=== PATIENT | male | born 1945 | race Caucasian/White ===

== ENCOUNTER → 2021-04-08 09:56 | Outpatient (BNVA) | payer MEDICARE, OTHER, SELFPAY | PROVIDERS: PCP Internal Medicine; Visit Provider Psychiatry & Neurology Neurology | DX: G20 Parkinson's disease (principal); K59.00 Constipation, unspecified; R20.0 Anesthesia of skin | CPT/HCPCS: 99212 ==

== ENCOUNTER 2021-04-15 08:48 | Outpatient (REF) | payer MEDICARE, OTHER, SELFPAY ==
--- NOTE | 2021-04-15 08:55 | EMG_ITS ---
This is a 75-year-old man who first developed some numbness in the toes 2 years ago that has gotten slowly worse. He now has numbness in his feet. PHYSICAL EXAMINATION: On examination, he is alert, oriented with normal intellectual functions. Cranial nerves II through XII are normal. Muscle tone and strength are normal in all 4 extremities. He has slight atrophy of the EDB muscle bilaterally. Decreased ankle reflexes. IMPRESSION: Peripheral neuropathy. 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 Normal EMG of the right L4-S1 innervated muscles. MD MANDO Caban/JESUS ALBERTO / [id number]
== END 2021-04-15 08:49 | disposition home or self-care (01) ==
LOC: HO.NEURO 08:48
PROVIDERS: PCP Internal Medicine; Visit Provider Psychiatry & Neurology Neurology
DX: R20.0 Anesthesia of skin (principal)
CPT/HCPCS: 95885; 95911

== ENCOUNTER → 2021-05-18 09:31 | Outpatient (BNVA) | payer MEDICARE, OTHER, SELFPAY | PROVIDERS: PCP Internal Medicine; Visit Provider Psychiatry & Neurology Neurology | DX: G20 Parkinson's disease (principal); K59.00 Constipation, unspecified; G62.89 Other specified polyneuropathies | CPT/HCPCS: 99212 ==

== ENCOUNTER → 2021-08-12 09:17 | Outpatient (BNVA) | payer MEDICARE, OTHER, SELFPAY | PROVIDERS: PCP Internal Medicine; Visit Provider Psychiatry & Neurology Neurology | DX: G20 Parkinson's disease (principal); G62.89 Other specified polyneuropathies; K59.00 Constipation, unspecified | CPT/HCPCS: 99212 ==

== ENCOUNTER → 2021-10-29 07:50 | Outpatient (BNVA) | payer MEDICARE, OTHER, SELFPAY | PROVIDERS: PCP Internal Medicine; Visit Provider Psychiatry & Neurology Neurology | DX: G62.89 Other specified polyneuropathies (principal); G20 Parkinson's disease; K59.00 Constipation, unspecified; G62.9 Polyneuropathy, unspecified | CPT/HCPCS: 99212 ==

== ENCOUNTER → 2022-01-25 09:25 | Outpatient (BNVA) | payer MEDICARE, OTHER, SELFPAY | PROVIDERS: PCP Internal Medicine; Visit Provider Psychiatry & Neurology Neurology | DX: G20 Parkinson's disease (principal); G62.89 Other specified polyneuropathies; K59.00 Constipation, unspecified | CPT/HCPCS: 99212 ==

== ENCOUNTER → 2022-08-26 07:24 | Outpatient (BNVA) | payer MEDICARE, OTHER, SELFPAY | PROVIDERS: PCP Internal Medicine; Visit Provider Psychiatry & Neurology Neurology | DX: G20 Parkinson's disease (principal); G62.89 Other specified polyneuropathies; K59.00 Constipation, unspecified | CPT/HCPCS: 99212 ==

== ENCOUNTER 2023-02-28 07:19 | Outpatient (AMB) | payer MEDICARE, OTHER, SELFPAY ==
--- NOTE | 2023-02-28 07:39 | A.OFFVIS_ITS ---
Intake Vital Signs 02/28/23 07:41 Height 6 ft 1 in Weight 160 lb BMI 21.1 BP 130/78 Blood Pressure Location Rt brachial Position Sitting Pulse 90 Pulse Source Pulse Oximeter Pulse Oximetry (%) 8 L Intake Visit Reasons: 6 MO FU-NUMBNESS - LVM Intake Note: Patient presents for 6 month follow up. Allergies No Known Allergies Allergy (Verified 02/28/23 07:41) Medication List - Last Reconciled 02/28/23 by Delaney Nice MD acetaminophen (Tylenol) 325 mg PO QID PRN Al hyd-Mg tr-alg ac-sod bicarb 80-14.2 mg (Gaviscon) tabs PO amantadine HCl 100 mg PO BID bisacodyl (Laxative (bisacodyl)) 10 mg PA DAILY PRN carbidopa-levodopa 25-100 mg 1 tab PO BID carboxymethylcellulose sodium 0.5% (Refresh Tears) 1 drp ophthalmic (eye) BID fluocinonide 0.05% mL topical hydrocortisone 1% (Cortizone-10) 1 appl topical BID PRN polyethylene glycol 3350 (Miralax) 17 grams PO DAILY sodium chloride-aloe vera (Saline Nasal (aloe vera) gel) 1 appl topical BEDTIME PRN vitamin C73-pxtbr acid 0.5-1 mg 1 tab PO DAILY HPI HPI Comments History of Present Illness Details ?77 y/o male patient comes for follow up visit.He stopped carbidopa/levodopa and is on amantadine 100mg bid. he had swelling of his feet and he thinks its related to amantadine. His PCP gave him furosemide which helped. He feels amantadine does not help.He reports tightness in his chest. He stopped azilect .He felt it did not help and it cost him 300$. Not much tremors in his hands but has bradykinesia and stiffness. He is concerned about his feet- c/o numbness and tingling in his toes . He denies back pain. He denies dizziness. he says he has tongue twitches .No falls since last visit.He has a walker but does not use it often . He still has stiffness, mild slowness in swallowing , tremors etc . He denies hallucinations or gi issues. he has chronic constipation and takes miralax . he denies double vision or vertigo He drinks 20 oz a day of water and 2 cups of coffee. ???His EMG /NCS was c/w sensory axonal neuropathy.His labs were normal Vit B 12 , TSH BEN ESR etc ???Pt denies any side effect of medication. Denies GI upset, hallucination.. PFSH Medical History Parkinson disease Hyperlipidemia Fibromyalgia Depression Blepharitis Gastritis Surgical History H/O prostatectomy Family History Mother Dementia Father Non-Hodgkin lymphoma Social History Alcohol intake: current Alcohol intake frequency: holidays/special occasions only Patient Tobacco Use Status: Former Tobacco user Quit Date: Physical Exam Vital Signs: Last Vital Signs Pulse 90 02/28/23 07:41 BP 130/78 02/28/23 07:41 Pulse Ox 8 L 02/28/23 07:41 BMI result Body Mass Index 21.1 Const Orientation/consciousness: patient oriented x3 Neuro Other: No postural,mild action tremors difficulty opening his mouth tongue tremors- very mild No rest tremors FFM and foot taps were decreased kota L>R Mild Decreased facial expression and blink Decreased tongue movements Voice- hypophonia and dysprosody - better than last visit Gait- stooped, good speed and good stride, decreased arm swings L>R General: patient oriented x3 Assessment & Plan Assessment & Plan (1) 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 Miralax for constipation Medications: New carbidopa-levodopa 25-100 mg 1 tab PO BID 60 tabs 6RF Discontinued lactulose Discontinued Reason: Patient no longer taking 10 grams (15 mL) PO BEDTIME 946 mL 3RF carbidopa-levodopa 25-100 mg Discontinued Reason: No Longer Medically Relevant 1 tab PO BID 60 tabs 6RF Coding Level of Care Code Est Pt Level 4 (68668) Diagnoses Parkinson disease G20 Constipation K59.00 Neuropathy, peripheral axonal G62.89
[2023-02-28 07:41] VITALS: BP 130/78; PULSE 90; O2SAT 8; BMI 21.1
== END 2023-02-28 08:09 | disposition home or self-care (01) ==
PROVIDERS: PCP Internal Medicine; Visit Provider Psychiatry & Neurology Neurology
DX: G20.A1 Parkinson's disease without dyskinesia, without mention of fluctuations (principal); K59.00 Constipation, unspecified; G62.89 Other specified polyneuropathies
CPT/HCPCS: 99214

== ENCOUNTER → 2023-02-28 07:19 | Outpatient (BNVA) | payer MEDICARE, OTHER, SELFPAY | PROVIDERS: PCP Internal Medicine; Visit Provider Psychiatry & Neurology Neurology | DX: G20.A1 Parkinson's disease without dyskinesia, without mention of fluctuations (principal); K59.00 Constipation, unspecified; G62.89 Other specified polyneuropathies | CPT/HCPCS: 99212 ==

== ENCOUNTER 2023-07-20 13:51 | Outpatient (AMB) | payer MEDICARE, OTHER, SELFPAY ==
--- NOTE | 2023-07-20 13:58 | A.OFFVIS_ITS ---
Vital Signs 07/20/23 13:59 Height 6 ft 1 in Weight 158 lb 2 oz BMI 20.9 BP 110/64 Blood Pressure Location Rt brachial Position Sitting Respiration 16 Pulse 103 H Pulse Source Pulse Oximeter Pulse Oximetry (%) 97 Oxygen Delivery Method Room Air Intake Visit Reasons: 4 mo f/u - Numbness-CONF Intake Note: Pt presents for a 4 month follow up for Parkinson's. 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 Allergies No Known Allergies Allergy (Verified 07/20/23 13:59) Medication List - Last Reconciled 07/20/23 by Delaney Nice MD acetaminophen (Tylenol) 325 mg PO QID PRN Al hyd-Mg tr-alg ac-sod bicarb 80-14.2 mg (Gaviscon) tabs PO amantadine HCl 100 mg PO BID bisacodyl (Laxative (bisacodyl)) 10 mg SC DAILY PRN carbidopa-levodopa 25-100 mg (Sinemet) 1 tab PO TID carboxymethylcellulose sodium 0.5% (Refresh Tears) 1 drp ophthalmic (eye) BID fluocinonide 0.05% mL topical hydrocortisone 1% (Cortizone-10) 1 appl topical BID PRN polyethylene glycol 3350 (Miralax) 17 grams PO DAILY sodium chloride-aloe vera (Saline Nasal (aloe vera) gel) 1 appl topical BEDTIME PRN vitamin H98-bfxpn acid 0.5-1 mg 1 tab PO DAILY HPI Comments Details: ?77 y/o male patient comes for follow up visit.He is on sinemet 25/100 bid amantadine 100mg bid. Not much tremors in his hands but has bradykinesia and stiffness. He is yousuf rned about his feet- c/o numbness and tingling in his toes . He denies back pain. He denies dizziness. he says he has tongue twitches .No falls since last visit.He has a walker but does not use it often . He still has stiffness, mild slowness in swallowing , tremors etc . He denies hallucinations or gi issues. he has chronic constipation and takes miralax . he denies double vision or vertigo He drinks 20 oz a day of water and 2 cups of coffee. ???His EMG /NCS was c/w sensory axonal neuropathy.His labs were normal Vit B 12 , TSH BEN ESR etc ???Pt denies any side effect of medication. Denies GI upset, hallucination.. PFSH Medical History Multiple system atrophy with predominant parkinsonism Parkinson disease Hyperlipidemia Fibromyalgia Depression Blepharitis Gastritis Surgical History H/O prostatectomy Family History Mother Dementia Father Non-Hodgkin lymphoma Social History Alcohol intake: current Alcohol intake frequency: holidays/special occasions only Patient Tobacco Use Status: Former Tobacco user Quit Date: Physical Exam Vital Signs: Last Vital Signs Pulse 103 H 07/20/23 13:59 Resp 16 07/20/23 13:59 BP 110/64 07/20/23 13:59 Pulse Ox 97 07/20/23 13:59 Oxygen Delivery Method Room Air 07/20/23 13:59 BMI result Body Mass Index 20.9 Const Orientation/consciousness: patient oriented x3 Neuro Other: No postural,mild action tremors difficulty opening his mouth tongue tremors- very mild No rest tremors FFM and foot taps were decreased kota L>R Mild Decreased facial expression and blink Decreased tongue movements Voice- hypophonia and dysprosody - better than last visit Gait- stooped, good speed and good stride, decreased arm swings L>R General: patient oriented x3 Assessment & Plan Assessment & Plan (1) Multiple system atrophy with predominant parkinsonism: Code(s): G23.2 - Striatonigral degeneration Category: Medical (2) Constipation: Comment: severe -stopped miralax Code(s): K59.00 - Constipation, unspecified Category: Medical (3) Neuropathy, peripheral axonal: Code(s): G62.89 - Other specified polyneuropathies Category: Medical Plan F/u with GI sinemet 25/100 tid amanatdine 100mg bid Increase fluid intake to 6 glasses of water or juice continue exercises. Miralax for constipation Medications: Changed From carbidopa-levodopa 25-100 mg (Sinemet) 1 tab PO BID 60 tabs 6RF To carbidopa-levodopa 25-100 mg (Sinemet) 1 tab PO TID 90 tabs 6RF Coding Level of Care Code Est Pt Level 4 (64686) Diagnoses Multiple system atrophy with predominant parkinsonism G23.2 Constipation K59.00 Neuropathy, peripheral axonal G62.89
[2023-07-20 13:59] VITALS: BP 110/64; PULSE 103; RESP 16; O2SAT 97; BMI 20.9
== END 2023-07-20 14:27 | disposition home or self-care (01) ==
PROVIDERS: PCP Internal Medicine; Visit Provider Psychiatry & Neurology Neurology
DX: G23.2 Striatonigral degeneration (principal); K59.00 Constipation, unspecified; G62.89 Other specified polyneuropathies
CPT/HCPCS: 99214

== ENCOUNTER → 2023-07-20 13:51 | Outpatient (BNVA) | payer OTHER, MEDICARE, SELFPAY | PROVIDERS: PCP Internal Medicine; Visit Provider Psychiatry & Neurology Neurology ==

== ENCOUNTER 2023-11-11 14:44 | Outpatient (AMB) | payer MEDICARE, OTHER, SELFPAY ==
--- NOTE | 2023-11-11 14:55 | MHC.OFFVIS ---
Vital Signs 11/11/23 14:56 Height 6 ft 1 in Weight 160 lb BMI 21.1 BP 138/82 Blood Pressure Location Rt brachial Position Sitting Respiration 16 Pulse 101 H Pulse Source Pulse Oximeter Pulse Oximetry (%) 98 Oxygen Delivery Method Room Air Intake Visit Reasons: Follow Up- APPROVED- Confirmed Intake Note: Pt presents to the office for 3 month follow up for Parkinson's. 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: No Allergies No Known Allergies Allergy (Verified 11/11/23 14:56) Medication List - Last Reconciled 11/11/23 by Delaney Nice MD acetaminophen (Tylenol) 325 mg PO QID PRN Al hyd-Mg tr-alg ac-sod bicarb 80-14.2 mg (Gaviscon) tabs PO bisacodyl (Laxative (bisacodyl)) 10 mg MS DAILY PRN carbidopa-levodopa 23.75-95 mg ER (Rytary) 2 caps PO TID carbidopa-levodopa 25-100 mg (Sinemet) 1 tab PO TID carboxymethylcellulose sodium 0.5% (Refresh Tears) 1 drp ophthalmic (eye) BID fluocinonide 0.05% mL topical hydrocortisone 1% (Cortizone-10) 1 appl topical BID PRN pantoprazole 40 mg PO DAILY polyethylene glycol 3350 (Miralax) 17 grams PO DAILY sodium chloride-aloe vera (Saline Nasal (aloe vera) gel) 1 appl topical BEDTIME PRN vitamin L36-qrnro acid 0.5-1 mg 1 tab PO DAILY HPI Comments Details: ?77 y/o male patient comes for follow up visit.He is on sinemet 25/100 tid but stopped amantadine 100mg bid. he could not tolerate amantadine . 2 hrs after sinemet dose he has mouth twitching Not much tremors in his hands but has bradykinesia and stiffness. He is concerned about his feet- c/o numbness and tingling in his toes . He denies back pain. He denies dizziness. he says he has tongue twitches .No falls since last visit.He has a walker but does not use it often . He still has stiffness, mild slowness in swallowing , tremors etc . He denies hallucinations or GI issues. he has chronic constipation and takes miralax . he denies double vision or vertigo He drinks 20 oz a day of water and 2 cups of coffee. ???His EMG /NCS was c/w sensory axonal neuropathy.His labs were normal Vit B 12 , TSH BEN ESR etc ???Pt denies any side effect of medication. Denies GI upset, hallucination.. PFSH Medical History Multiple system atrophy with predominant parkinsonism Parkinson disease Hyperlipidemia Fibromyalgia Depression Blepharitis Gastritis Surgical History H/O prostatectomy Family History Mother Dementia Father Non-Hodgkin lymphoma Social History Alcohol intake: current Alcohol intake frequency: holidays/special occasions only Patient Tobacco Use Status: Former Tobacco user Physical Exam Vital Signs: Last Vital Signs Pulse 101 H 11/11/23 14:56 Resp 16 11/11/23 14:56 BP 138/82 11/11/23 14:56 Pulse Ox 98 11/11/23 14:56 Oxygen Delivery Method Room Air 11/11/23 14:56 BMI result Body Mass Index 21.1 Const Orientation/consciousness: patient oriented x3 Neuro Other: No postural,mild action tremors difficulty opening his mouth tongue tremors- very mild No rest tremors FFM and foot taps were decreased kota L>R Mild Decreased facial expression and blink Decreased tongue movements Voice- hypophonia and dysprosody - better than last visit Gait- stooped, good speed and good stride, decreased arm swings L>R General: patient oriented x3 Assessment & Plan Assessment & Plan (1) Multiple system atrophy with predominant parkinsonism: Code(s): G23.2 - Striatonigral degeneration Category: Medical (2) Constipation: Code(s): K59.00 - Constipation, unspecified Category: Medical (3) Neuropathy, peripheral axonal: Code(s): G62.89 - Other specified polyneuropathies Category: Medical Plan F/u with GI will trial rytary / 2 caps tid d/c sinemet Increase fluid intake to 6 glasses of water or juice continue exercises. He is starting speech therapy and swallowing eval Miralax for constipation Medications: New carbidopa-levodopa -95 mg ER (Rytary) divide evenly over waking hours 2 caps PO TID 180 caps 6RF Coding Level of Care Code Est Pt Level 4 (82131) Complex EM visit Add On G2211 Diagnoses Multiple system atrophy with predominant parkinsonism G23.2 Constipation K59.00 Neuropathy, peripheral axonal G62.89
[2023-11-11 14:56] VITALS: BP 138/82; PULSE 101; RESP 16; O2SAT 98; BMI 21.1
== END 2023-11-11 15:32 | disposition home or self-care (01) ==
PROVIDERS: PCP Internal Medicine; Visit Provider Psychiatry & Neurology Neurology
DX: G23.2 Striatonigral degeneration (principal); K59.00 Constipation, unspecified; G62.89 Other specified polyneuropathies
CPT/HCPCS: 99214; G2211

== ENCOUNTER → 2023-11-11 14:44 | Outpatient (BNVA) | payer MEDICARE, OTHER, SELFPAY | PROVIDERS: PCP Internal Medicine; Visit Provider Psychiatry & Neurology Neurology | DX: G23.2 Striatonigral degeneration (principal); G62.89 Other specified polyneuropathies; K59.00 Constipation, unspecified | CPT/HCPCS: 99212 ==